=== PATIENT | male | born 1935 | race African-American/Black ===

== ENCOUNTER 2018-08-28 11:50 | Inpatient (IN) | payer BC, MEDICAID ==
[~2018-08-28] VITALS: Ht 177.8 cm; Wt 104.5 kg
[2018-08-28 14:13] LABS: BASOPHILS % 0.8 % (0.0-2.0); EOSINOPHILS % 2.5 % (0.0-5.0); HEMATOCRIT. 41.8 % (42.0-52.0); HEMOGLOBIN. 13.4 g/dL (14.0-18.0); LYMPHOCYTES % 19.3 % (20.0-50.0); MEAN CORPUSCULAR HEMOGLOBIN 30.2 pg (28.0-32.0); MEAN PLATELET VOLUME 7.8 fl (7.4-10.4); MONOCYTES % 11.2 % (2.0-8.0); NEUTROPHILS % 66.2 % (40.0-76.0); PLATELET 222 x1000/uL (130-400); RED BLOOD CELL COUNT 4.44 mill/uL (4.7-6.1); RED CELL DISTRIBUTION WIDTH 14.1 % (11.6-14.6)
[2018-08-28 14:16] LABS: CHLORIDE 108 mEq/L (98-107)
[2018-08-28] MEDS ORDERED: IOHEXOL-350 100 ML BOTTLE ONE (16:38)
[2018-08-28 17:25] LABS: CLARITY URINE CLEAR (CLEAR); COLOR URINE YELLOW (YELLOW); KETONES URINE NEGATIVE (NEGATIVE); LEUKOCYTE ESTERASE URINE NEGATIVE (NEGATIVE); NITRITE URINE NEGATIVE (NEGATIVE); OCCULT BLOOD URINE NEGATIVE (NEGATIVE); PH URINE 5.5 (4.5-8.0); PROTEIN URINE TRACE (NEGATIVE); SPECIFIC GRAVITY URINE 1.036 (1.005-1.030)
[2018-08-28] MEDS ORDERED: LORAZEPAM 0.5MG TABLET PO PRN (19:00)
[2018-08-28] MEDS ORDERED: IPRATROPIUM/ALBUTEROL 0.5-3(2.5)MG/3ML NEB INH PRN (19:00)
[2018-08-28] MEDS ORDERED: NA PHOS,M-B/NA PHOS,DI-BA ENEMA 118ML PR PRN (19:00)
[2018-08-28] MEDS ORDERED: ZOLPIDEM TARTRATE 5MG TABLET PO PRN (19:00)
[2018-08-28] MEDS ORDERED: ONDANSETRON HCL 4MG/2ML INJ IV PRN (19:00)
[2018-08-28] MEDS ORDERED: NITROGLYCERIN 0.4MG TABLET SL SL PRN (19:00)
[2018-08-28] MEDS ORDERED: ACETAMINOPHEN 325MG TABLET PO PRN (19:00)
[2018-08-28] MEDS ORDERED: TRAMADOL 50MG TABLET PO PRN (19:00)
[2018-08-28] MEDS ORDERED: DOCUSATE SODIUM 100MG CAPSULE PO PRN (19:00)
[2018-08-28] MEDS ORDERED: DEXTROSE 50% WATER 50ML SYRINGE IV PRN (19:00)
[2018-08-28] MEDS ORDERED: MAGNESIUM/ALUMINUM HYDROXIDE/SIMETHICONE 30ML UDC PO PRN (19:00)
[2018-08-28 19:48] LABS: FOLIC ACID (FOLATE) SERUM 13.9 ng/mL (>5.38)
[2018-08-28 22:54] LABS: PROTHROMBIN TIME 10.7 sec (9.6-11.0)
[2018-08-28 22:58] LABS: CREATINE KINASE 131 IU/L (39-308)
[2018-08-28 22:59] LABS: CREATINE KINASE MB FRACTION 1.2 ng/mL (0.5-3.6)
[2018-08-28] MEDS ORDERED: ENOXAPARIN 100MG/ML SYR SUBCUT NR (23:30)
[2018-08-29] VITALS (7 sets, daily range): BP systolic 126–164; BP diastolic 51–77
[2018-08-29] MEDS: ENOXAPARIN 100MG/ML SYR SUBCUT SCH ×2 (02:00→18:00)
[2018-08-29] MEDS: LISINOPRIL 20MG TABLET PO SCH ×2 (02:42→20:56)
[2018-08-29] MEDS: METOPROLOL TARTRATE 25MG TABLET PO SCH ×2 (02:42→20:56)
[2018-08-29] MEDS ORDERED: IRBE150T27 PO (02:56)
[2018-08-29] MEDS ORDERED: HYDR-3280 PO (02:56)
[2018-08-29] MEDS ORDERED: GABA-529 PO (02:56)
[2018-08-29] MEDS ORDERED: MIRA25TA PO (02:56)
[2018-08-29] MEDS ORDERED: CARV25TA47 PO (02:56)
[2018-08-29] MEDS ORDERED: GLIM1TAB2 PO (02:56)
[2018-08-29] MEDS ORDERED: OMEP40CA34 PO (02:56)
[2018-08-29] MEDS ORDERED: NIFE60TA64 PO (02:56)
[2018-08-29] MEDS ORDERED: VALS160T28 PO (02:56)
[2018-08-29] MEDS ORDERED: FLUT9.9S NS (02:56)
[2018-08-29] MEDS ORDERED: METF-816 PO (02:56)
[2018-08-29] MEDS ORDERED: NIFE30TA83 PO (02:56)
[2018-08-29] MEDS ORDERED: ATOR40TA70 PO (02:56)
[2018-08-29] MEDS ORDERED: FURO20TA4 PO (02:56)
[2018-08-29 03:30] LABS: METHADONE URINE SCREEN NEGATIVE (NEGATIVE); OPIATES URINE SCREEN NEGATIVE (NEGATIVE)
[2018-08-29 03:31] LABS: *AMPHETAMINES SCREEN URINE NEGATIVE (NEGATIVE); *BARBITURATES SCREEN URINE NEGATIVE (NEGATIVE); *BENZODIAZEPINES SCREEN URINE NEGATIVE (NEGATIVE); *COCAINE SCREEN URINE NEGATIVE (NEGATIVE); CANNABINOID URINE SCREEN NEGATIVE (NEGATIVE); PHENCYCLIDINE URINE SCREEN NEGATIVE (NEGATIVE)
[2018-08-29] MEDS: BLOOD SUGAR DIAGNOSTIC STRIP TEST SCH ×4 (06:31→20:56)
[2018-08-29] MEDS: INSULIN LISPRO 100 UNITS/ML SUBCUT SCH ×4 (06:32→20:57)
[2018-08-29 07:45] LABS: CREATINE KINASE 109 IU/L (39-308)
[2018-08-29 07:46] LABS: CREATINE KINASE MB FRACTION 1.1 ng/mL (0.5-3.6)
[2018-08-29] MEDS ORDERED: REGADENOSON 0.4 MG/5 ML IV NR (08:30)
[2018-08-29] MEDS: ASPIRIN 325MG EC TABLET PO SCH ×2 (09:00→09:27)
[2018-08-29 09:14] LABS: T4 FREE 1.19 ng/dL (0.76-1.46)
[2018-08-29] MEDS: FAMOTIDINE 20MG TABLET PO SCH ×2 (09:27→20:56)
[2018-08-29] MEDS ORDERED: REGADENOSON 0.4 MG/5 ML IV ONE (11:19)
[2018-08-29 18:59] LABS: CREATINE KINASE 135 IU/L (39-308)
[2018-08-29 19:00] LABS: CREATINE KINASE MB FRACTION 1.4 ng/mL (0.5-3.6)
[2018-08-30] VITALS (7 sets, daily range): BP systolic 114–174; BP diastolic 56–80
[2018-08-30 01:47] LABS: CREATINE KINASE 114 IU/L (39-308)
[2018-08-30 01:48] LABS: CREATINE KINASE MB FRACTION 1.2 ng/mL (0.5-3.6)
[2018-08-30] MEDS: ENOXAPARIN 100MG/ML SYR SUBCUT SCH ×2 (06:00→18:22)
[2018-08-30] MEDS: BLOOD SUGAR DIAGNOSTIC STRIP TEST SCH ×4 (06:46→21:44)
[2018-08-30] MEDS: INSULIN LISPRO 100 UNITS/ML SUBCUT SCH ×4 (06:46→21:00)
[2018-08-30 07:26] LABS: CREATINE KINASE 116 IU/L (39-308)
[2018-08-30 07:27] LABS: CREATINE KINASE MB FRACTION 1.3 ng/mL (0.5-3.6)
[2018-08-30] MEDS: ASPIRIN 325MG EC TABLET PO SCH (09:00)
[2018-08-30] MEDS: LISINOPRIL 20MG TABLET PO SCH ×2 (09:13→21:26)
[2018-08-30] MEDS: FAMOTIDINE 20MG TABLET PO SCH ×2 (09:13→21:25)
[2018-08-30] MEDS: METOPROLOL TARTRATE 25MG TABLET PO SCH ×2 (09:13→21:26)
[2018-08-30] MEDS: CLONIDINE 0.1MG TABLET PO PRN (12:02)
[2018-08-30] MEDS ORDERED: IOHEXOL-350 100 ML BOTTLE ONE (14:26)
[2018-08-31] VITALS: BP 136/48
[2018-08-31] MEDS: IPRATROPIUM/ALBUTEROL 0.5-3(2.5)MG/3ML NEB HHN SCH ×4 (01:36→21:22)
[2018-08-31] MEDS: GUAIFENESIN 200MG/10ML SUGAR FREE UDC PO PRN ×2 (02:15→20:39)
[2018-08-31 04:00] VITALS: BP 171/68
[2018-08-31] MEDS: CLONIDINE 0.1MG TABLET PO PRN (04:41)
[2018-08-31] MEDS: ENOXAPARIN 100MG/ML SYR SUBCUT SCH ×2 (06:12→17:32)
[2018-08-31] MEDS: BLOOD SUGAR DIAGNOSTIC STRIP TEST SCH ×4 (06:15→20:35)
[2018-08-31] MEDS: INSULIN LISPRO 100 UNITS/ML SUBCUT SCH ×4 (06:16→20:36)
[2018-08-31 08:00] VITALS: BP 144/64
[2018-08-31] MEDS: METOPROLOL TARTRATE 25MG TABLET PO SCH (08:44)
[2018-08-31] MEDS: FAMOTIDINE 20MG TABLET PO SCH ×2 (08:45→20:35)
[2018-08-31] MEDS: ASPIRIN 325MG EC TABLET PO SCH (08:45)
[2018-08-31] MEDS: LISINOPRIL 20MG TABLET PO SCH ×2 (08:45→20:35)
[2018-08-31 13:20] LABS: HEMOGLOBIN. 12.9 g/dL (14.0-18.0); MEAN CORPUSCULAR HEMOGLOBIN 30.1 pg (28.0-32.0); MEAN PLATELET VOLUME 7.8 fl (7.4-10.4); PLATELET 257 x1000/uL (130-400)
[2018-08-31 13:23] LABS: INR 1.1; PROTHROMBIN TIME 11.2 sec (9.6-11.0)
[2018-08-31 13:46] LABS: PLATELET ESTIMATE NORMAL
[2018-08-31 14:25] VITALS: BP 142/82
[2018-08-31 16:00] VITALS: BP 164/82
[2018-08-31] MEDS ORDERED: WARFARIN SODIUM 7.5MG TABLET PO SCH (18:00)
[2018-08-31 20:00] VITALS: BP 104/59
[2018-09-01] VITALS: BP 146/57
[2018-09-01] MEDS: IPRATROPIUM/ALBUTEROL 0.5-3(2.5)MG/3ML NEB HHN SCH (01:57)
[2018-09-01 04:00] VITALS: BP_SYST 140; BP_SYST 144; BP_DIAS 112; BP_DIAS 49
[2018-09-01] MEDS: GUAIFENESIN 200MG/10ML SUGAR FREE UDC PO PRN (04:58)
[2018-09-01] MEDS: ENOXAPARIN 100MG/ML SYR SUBCUT SCH (05:00)
[2018-09-01] MEDS: BLOOD SUGAR DIAGNOSTIC STRIP TEST SCH ×2 (06:16→11:45)
[2018-09-01] MEDS: INSULIN LISPRO 100 UNITS/ML SUBCUT SCH ×2 (06:16→12:15)
[2018-09-01 06:46] LABS: INR 1.1; PROTHROMBIN TIME 11.5 sec (9.6-11.0)
[2018-09-01 08:00] VITALS: BP 165/85
[2018-09-01] MEDS: ASPIRIN 325MG EC TABLET PO SCH (09:01)
[2018-09-01] MEDS: LISINOPRIL 20MG TABLET PO SCH (09:01)
[2018-09-01] MEDS: FAMOTIDINE 20MG TABLET PO SCH (09:01)
[2018-09-01 12:00] VITALS: BP 137/57
[2018-09-01 15:19] VITALS: BP 137/57
[2018-09-01] MEDS ORDERED: FLUT9.9S BOTHNSTRLS (15:52)
[2018-09-01] MEDS ORDERED: GABA-529 MT ×3 (15:54)
[2018-09-01] MEDS ORDERED: METF-416 MT (15:55)
[2018-09-01] MEDS ORDERED: WARFARIN SODIUM 7.5MG TABLET PO NR (18:00)
== END 2018-09-01 16:40 | disposition home or self-care (01) | DRG 175 ==
LOC: ER 11:50 → EDBD 11:50 → 5WST 18:48 → ENRESERV 23:11
PROVIDERS: ADMIT Internal Medicine; ATTEND Internal Medicine
DX: I26.99 Other pulmonary embolism without acute cor pulmonale (principal); J96.00 Acute respiratory failure, unspecified whether with hypoxia or hypercapnia; E44.0 Moderate protein-calorie malnutrition; I48.92 Unspecified atrial flutter; E11.9 Type 2 diabetes mellitus without complications; E78.5 Hyperlipidemia, unspecified; D64.9 Anemia, unspecified; I11.9 Hypertensive heart disease without heart failure; I44.30 Unspecified atrioventricular block; I45.10 Unspecified right bundle-branch block; I48.91 Unspecified atrial fibrillation; K59.00 Constipation, unspecified; Z79.4 Long term (current) use of insulin; Z88.0 Allergy status to penicillin; Z88.6 Allergy status to analgesic agent; Z68.33 Body mass index [BMI] 33.0-33.9, adult; Z79.899 Other long term (current) drug therapy; Z79.1 Long term (current) use of non-steroidal anti-inflammatories (NSAID); Z79.84 Long term (current) use of oral hypoglycemic drugs
CPT/HCPCS: 36415; 71045; 71275; 74174; 78452; 80061; 80305; 82550; 82553; 82607; 82746; 82962; 83036; 83540; 83550; 83605; 83880; 84439; 84443; 84484; 85379; 93005; 93017; 93306; 93970; 94640; 99285; A9500; J1650; J1815; J2785; J7620; Q9967

== ENCOUNTER 2018-10-06 12:14 | Inpatient (IN) | payer BC, MEDICAID ==
[~2018-10-06] VITALS: Ht 175.3 cm; Wt 108.9 kg
[~2018-10-06 12:14] MED LIST: ATOR40TA70 PO; CARV25TA47 PO; FLUT9.9S BOTHNSTRLS; GABA-529 MT; GLIM1TAB2 PO; IRBE150T27 PO; METF-416 MT; MIRA25TA PO; NIFE30TA83 PO; NIFE60TA64 PO; OMEP40CA34 PO
[2018-10-06] MEDS ORDERED: FUROSEMIDE 40MG/4ML VIAL IV ONE (13:00)
[2018-10-06] MEDS ORDERED: NITROGLYCERIN 0.4MG TABLET SL SL PRN (13:00)
[2018-10-06] MEDS ORDERED: ASPIRIN 81MG TABLET PO ONE (13:00)
[2018-10-06 13:07] LABS: BASOPHILS % 1.1 % (0.0-2.0); EOSINOPHILS % 1.8 % (0.0-5.0); HEMATOCRIT. 34.8 % (42.0-52.0); HEMOGLOBIN. 11.1 g/dL (14.0-18.0); LYMPHOCYTES % 16.1 % (20.0-50.0); MEAN CORPUSCULAR HEMOGLOBIN 29.8 pg (28.0-32.0); MEAN CORPUSCULAR VOLUME 93.5 fL (80.0-94.0); MEAN PLATELET VOLUME 7.4 fl (7.4-10.4); MONOCYTES % 6.9 % (2.0-8.0); NEUTROPHILS % 74.1 % (40.0-76.0); PLATELET 257 x1000/uL (130-400); RED BLOOD CELL COUNT 3.72 mill/uL (4.7-6.1); RED CELL DISTRIBUTION WIDTH 15.7 % (11.6-14.6)
[2018-10-06 13:13] LABS: CHLORIDE 104 mEq/L (98-107)
[2018-10-06 13:14] LABS: INR 1.7; PROTHROMBIN TIME 17.3 sec (9.6-11.0)
[2018-10-06] MEDS ORDERED: IPRATROPIUM/ALBUTEROL 0.5-3(2.5)MG/3ML NEB HHN NR (17:00)
[2018-10-06 18:31] LABS: BG BASE EXCESS -1.1 mmol/L (-2.0-2.0); BG DEOXYHEMOGLOBIN 5.6 % (0.0-5.0); BG FRACTION INSPIRED OXYGEN 32; BG HCO3 ACT 23.9 mmol/L (22.0-26.0); BG METHEMOGLOBIN 0.3 % (0.0-1.5); BG OXYGEN SATURATION 94.3 % (92.0-98.5); BG OXYHEMOGLOBIN 93.1 % (94.0-97.0); BG PCO2 41.1 mmHg (35.0-45.0); BG PH 7.382 (7.350-7.450); BG SAMPLE SITE RIGHT RADIAL; BG TOTAL HEMOGLOBIN 12.3 g/dL (12.0-18.0); BG VENT MODE NASAL CANNULA
[2018-10-06] MEDS ORDERED: SODIUM POLYSTYRENE SULFONATE 15 G/60 ML BOT PO NR (19:00)
[2018-10-06] MEDS ORDERED: RIVAROXABAN 20 MG TABLET PO SCH (20:00)
[2018-10-06 22:00] VITALS: BP 144/55
[2018-10-06] MEDS ORDERED: ACETAMINOPHEN 325MG TABLET PO PRN (23:15)
[2018-10-06] MEDS ORDERED: HYDROCODONE/ACETAMINOPHEN 5/325MG TABLET PO PRN (23:15)
[2018-10-06] MEDS ORDERED: DOCUSATE SODIUM 100MG CAPSULE PO PRN (23:15)
[2018-10-06] MEDS ORDERED: ONDANSETRON HCL 4MG/2ML INJ IV PRN (23:15)
[2018-10-06 23:27] LABS: CANNABINOID URINE SCREEN NEGATIVE (NEGATIVE); OPIATES URINE SCREEN NEGATIVE (NEGATIVE); PHENCYCLIDINE URINE SCREEN NEGATIVE (NEGATIVE)
[2018-10-06 23:28] LABS: *AMPHETAMINES SCREEN URINE NEGATIVE (NEGATIVE); *BARBITURATES SCREEN URINE NEGATIVE (NEGATIVE); *BENZODIAZEPINES SCREEN URINE NEGATIVE (NEGATIVE); *COCAINE SCREEN URINE NEGATIVE (NEGATIVE); METHADONE URINE SCREEN NEGATIVE (NEGATIVE)
[2018-10-07] VITALS (7 sets, daily range): BP systolic 3–179; BP diastolic 51–95
[2018-10-07] MEDS ORDERED: FURO20TA4 MT (03:15)
[2018-10-07] MEDS ORDERED: ISOS1TAB MT (03:15)
[2018-10-07] MEDS ORDERED: ASPI-1393 MT (03:15)
[2018-10-07] MEDS ORDERED: LINA5TAB MT (03:18)
[2018-10-07] MEDS: SODIUM CHLORIDE 0.45% 1,000 ML IV SCH ×2 (03:50→14:44)
[2018-10-07] MEDS ORDERED: CLONIDINE 0.1MG TABLET PO PRN (05:00)
[2018-10-07 06:40] LABS: BASOPHILS % 0.5 % (0.0-2.0); EOSINOPHILS % 1.6 % (0.0-5.0); HEMATOCRIT. 35.2 % (42.0-52.0); HEMOGLOBIN. 11.5 g/dL (14.0-18.0); LYMPHOCYTES % 21.2 % (20.0-50.0); MEAN CORPUSCULAR HEMOGLOBIN 30.1 pg (28.0-32.0); MEAN CORPUSCULAR VOLUME 92.3 fL (80.0-94.0); MEAN PLATELET VOLUME 7.6 fl (7.4-10.4); MONOCYTES % 13.9 % (2.0-8.0); NEUTROPHILS % 62.8 % (40.0-76.0); PLATELET 251 x1000/uL (130-400); RED BLOOD CELL COUNT 3.82 mill/uL (4.7-6.1); RED CELL DISTRIBUTION WIDTH 15.3 % (11.6-14.6)
[2018-10-07 06:55] LABS: CHLORIDE 104 mEq/L (98-107)
[2018-10-07 07:07] LABS: LDL CHOLESTEROL 53 mg/dL (5-100)
[2018-10-07 07:08] LABS: HDL CHOLESTEROL 43 mg/dL (40-59)
[2018-10-07 07:09] LABS: T4 FREE 1.28 ng/dL (0.76-1.46)
[2018-10-07] MEDS ORDERED: IPRATROPIUM/ALBUTEROL 0.5-3(2.5)MG/3ML NEB INH SCH (09:00)
[2018-10-07] MEDS ORDERED: ASPIRIN 81MG EC TABLET PO SCH (09:00)
[2018-10-07 12:10] LABS: CLARITY URINE CLEAR (CLEAR); COLOR URINE YELLOW (YELLOW); KETONES URINE NEGATIVE (NEGATIVE); LEUKOCYTE ESTERASE URINE NEGATIVE (NEGATIVE); NITRITE URINE NEGATIVE (NEGATIVE); OCCULT BLOOD URINE NEGATIVE (NEGATIVE); PROTEIN URINE NEGATIVE (NEGATIVE); SPECIFIC GRAVITY URINE 1.011 (1.005-1.030)
[2018-10-07] MEDS: AMLODIPINE 5MG TABLET PO SCH (12:27)
[2018-10-07] MEDS ORDERED: DEXTROSE 50% WATER 50ML SYRINGE IV PRN (13:45)
[2018-10-07] MEDS: OMEPRAZOLE 20MG CAPSULE EXTENDED RELEASE PO SCH (14:52)
[2018-10-07] MEDS: GABAPENTIN 100MG CAPSULE PO SCH (14:53)
[2018-10-07] MEDS: HYDRALAZINE HCL 50MG TABLET PO SCH ×2 (14:53→21:52)
[2018-10-07] MEDS: BLOOD SUGAR DIAGNOSTIC STRIP TEST SCH ×2 (17:00→21:00)
[2018-10-07] MEDS: INSULIN LISPRO 100 UNITS/ML SUBCUT SCH ×2 (17:38→21:00)
[2018-10-07] MEDS: METHYLPREDNISOLONE SOD SUCC 40 MG/ML VIAL IV SCH (18:15)
[2018-10-07] MEDS ORDERED: LEVOFLOXACIN 500MG PREMIX 100 ML IV SCH (18:30)
[2018-10-07] MEDS ORDERED: ATORVASTATIN CALCIUM 40MG TABLET PO SCH (21:00)
[2018-10-07] MEDS: BUDESONIDE 0.5MG/2ML NEB HHN SCH (21:20)
[2018-10-07 23:33] LABS: INR 1.1; PROTHROMBIN TIME 11.5 sec (9.6-11.0)
[2018-10-07 23:43] LABS: HEMATOCRIT 40.2 % (42.0-52.0); HEMOGLOBIN 13.1 g/dL (14.0-18.0)
[2018-10-08] VITALS: BP 135/72
[2018-10-08] MEDS: IPRATROPIUM/ALBUTEROL 0.5-3(2.5)MG/3ML NEB HHN SCH ×5 (00:56→15:45)
[2018-10-08] MEDS: SODIUM CHLORIDE 0.45% 1,000 ML IV SCH ×2 (03:24→16:00)
[2018-10-08 04:00] VITALS: BP 148/64
[2018-10-08] MEDS: METHYLPREDNISOLONE SOD SUCC 40 MG/ML VIAL IV SCH ×2 (05:20→13:03)
[2018-10-08] MEDS: HYDRALAZINE HCL 50MG TABLET PO SCH ×2 (06:53→12:59)
[2018-10-08 07:15] LABS: CHLORIDE 103 mEq/L (98-107)
[2018-10-08 07:20] LABS: HEMATOCRIT 37.5 % (42.0-52.0); HEMOGLOBIN 12.2 g/dL (14.0-18.0); MEAN CORPUSCULAR HEMOGLOBIN 30.1 pg (28.0-32.0); MEAN CORPUSCULAR VOLUME 92.3 fL (80.0-94.0); PLATELET 254 x1000/uL (130-400); RED BLOOD CELL COUNT 4.07 mill/uL (4.7-6.1); RED CELL DISTRIBUTION WIDTH 15.2 % (11.6-14.6)
[2018-10-08] MEDS: BUDESONIDE 0.5MG/2ML NEB HHN SCH (07:33)
[2018-10-08] MEDS: BLOOD SUGAR DIAGNOSTIC STRIP TEST SCH ×3 (07:50→17:30)
[2018-10-08 08:00] VITALS: BP 160/68
[2018-10-08] MEDS: AMLODIPINE 5MG TABLET PO SCH (08:41)
[2018-10-08] MEDS: GABAPENTIN 100MG CAPSULE PO SCH (08:41)
[2018-10-08] MEDS: OMEPRAZOLE 20MG CAPSULE EXTENDED RELEASE PO SCH (08:42)
[2018-10-08] MEDS: INSULIN LISPRO 100 UNITS/ML SUBCUT SCH ×3 (08:43→17:30)
[2018-10-08] MEDS ORDERED: MEDICATION NOT ON FORMULARY EA (Gabapentin 1 CAP) MT SCH (09:00)
[2018-10-08] MEDS ORDERED: MEDICATION NOT ON FORMULARY EA (Omeprazole 40 MG) PO SCH (09:00)
[2018-10-08 12:00] VITALS: BP 150/71
[2018-10-08] MEDS ORDERED: HYDRALAZINE HCL 50MG TABLET PO SCH ×2 (14:00→22:00)
[2018-10-08 16:05] VITALS: BP 151/79
[2018-10-08 16:09] VITALS: BP 151/79
[2018-10-08] MEDS ORDERED: LEVOFLOXACIN 250MG PREMIX 50 ML IV SCH (18:00)
[2018-10-09] MEDS ORDERED: METHYLPREDNISOLONE SOD SUCC 40 MG/ML VIAL IV SCH (09:00)
[2018-10-09] MEDS ORDERED: FAMOTIDINE 20MG TABLET PO SCH (09:00)
[2018-10-09] MEDS ORDERED: LEVOFLOXACIN 500MG TABLET PO SCH (11:00)
== END 2018-10-08 19:50 | disposition home or self-care (01) | DRG 175 ==
LOC: ER 12:14 → 7WST 16:39 → EDBEDREQ 16:49 → ENRESERV 19:47 → 7WST 10-07 02:56
PROVIDERS: ADMIT Internal Medicine; ATTEND Internal Medicine
DX: I26.99 Other pulmonary embolism without acute cor pulmonale (principal); J96.20 Acute and chronic respiratory failure, unspecified whether with hypoxia or hypercapnia; J44.1 Chronic obstructive pulmonary disease with (acute) exacerbation; N17.9 Acute kidney failure, unspecified; D68.59 Other primary thrombophilia; I48.92 Unspecified atrial flutter; K57.90 Diverticulosis of intestine, part unspecified, without perforation or abscess without bleeding; T38.0X5A Adverse effect of glucocorticoids and synthetic analogues, initial encounter; E11.40 Type 2 diabetes mellitus with diabetic neuropathy, unspecified; E11.65 Type 2 diabetes mellitus with hyperglycemia; E66.9 Obesity, unspecified; E78.5 Hyperlipidemia, unspecified; E87.5 Hyperkalemia; I11.0 Hypertensive heart disease with heart failure; I27.20 Pulmonary hypertension, unspecified; I45.10 Unspecified right bundle-branch block; I48.0 Paroxysmal atrial fibrillation; I50.9 Heart failure, unspecified; T50.2X5A Adverse effect of carbonic-anhydrase inhibitors, benzothiadiazides and other diuretics, initial encounter; K21.9 Gastro-esophageal reflux disease without esophagitis; R04.0 Epistaxis; Z79.01 Long term (current) use of anticoagulants; Z82.49 Family history of ischemic heart disease and other diseases of the circulatory system; Z87.891 Personal history of nicotine dependence; Z99.81 Dependence on supplemental oxygen; Z68.35 Body mass index [BMI] 35.0-35.9, adult; Z88.0 Allergy status to penicillin; Z88.8 Allergy status to other drugs, medicaments and biological substances; Z79.84 Long term (current) use of oral hypoglycemic drugs; Z79.899 Other long term (current) drug therapy
CPT/HCPCS: 36415; 36600; 71045; 76770; 78582; 80048; 80061; 80305; 82375; 82805; 82962; 83880; 84439; 84443; 84484; 85014; 85018; 85027; 93005; 94640; 97162; 99285; A9558; C1893; J1815; J1940; J1956; J2920; J7620; J7626